=== PATIENT | male | born 1945 | race Caucasian/White ===

== ENCOUNTER → 2019-12-19 13:34 | Outpatient (BNVA) | payer MEDICARE, SELFPAY | PROVIDERS: PCP Internal Medicine Endocrinology, Diabetes & Metabolism; Visit Provider Internal Medicine Endocrinology, Diabetes & Metabolism | DX: I48.0 Paroxysmal atrial fibrillation (principal); Z51.81 Encounter for therapeutic drug level monitoring; Z79.01 Long term (current) use of anticoagulants | CPT/HCPCS: 93793 ==

== ENCOUNTER → 2019-12-26 15:04 | Outpatient (BNVA) | payer MEDICARE, SELFPAY | PROVIDERS: PCP Internal Medicine Endocrinology, Diabetes & Metabolism; Visit Provider Internal Medicine | DX: I48.0 Paroxysmal atrial fibrillation (principal); Z51.81 Encounter for therapeutic drug level monitoring; Z79.01 Long term (current) use of anticoagulants | CPT/HCPCS: Q3014 ==

== ENCOUNTER → 2020-01-02 15:59 | Outpatient (BNVA) | payer MEDICARE, SELFPAY | PROVIDERS: PCP Internal Medicine Endocrinology, Diabetes & Metabolism; Visit Provider Internal Medicine | DX: I48.0 Paroxysmal atrial fibrillation (principal); Z51.81 Encounter for therapeutic drug level monitoring; Z79.01 Long term (current) use of anticoagulants | CPT/HCPCS: 99211 ==

== ENCOUNTER → 2020-01-16 13:46 | Outpatient (BNVA) | payer MEDICARE, SELFPAY | PROVIDERS: PCP Internal Medicine Endocrinology, Diabetes & Metabolism; Visit Provider Internal Medicine | DX: Z76.89 Persons encountering health services in other specified circumstances (principal) ==

== ENCOUNTER → 2020-01-23 14:09 | Outpatient (BNVA) | payer MEDICARE, SELFPAY | PROVIDERS: PCP Internal Medicine Endocrinology, Diabetes & Metabolism; Visit Provider Internal Medicine | DX: Z76.89 Persons encountering health services in other specified circumstances (principal) ==

== ENCOUNTER → 2020-01-30 16:28 | Outpatient (BNVA) | payer MEDICARE, SELFPAY | PROVIDERS: PCP Internal Medicine Endocrinology, Diabetes & Metabolism; Visit Provider Internal Medicine | DX: I48.0 Paroxysmal atrial fibrillation (principal); Z51.81 Encounter for therapeutic drug level monitoring; Z79.01 Long term (current) use of anticoagulants | CPT/HCPCS: 99211 ==

== ENCOUNTER → 2020-02-06 13:43 | Outpatient (BNVA) | payer MEDICARE, SELFPAY | PROVIDERS: PCP Internal Medicine Endocrinology, Diabetes & Metabolism; Visit Provider Internal Medicine | DX: Z76.89 Persons encountering health services in other specified circumstances (principal) ==

== ENCOUNTER → 2020-02-13 14:45 | Outpatient (BNVA) | payer MEDICARE, SELFPAY | PROVIDERS: PCP Internal Medicine Endocrinology, Diabetes & Metabolism; Visit Provider Internal Medicine | DX: Z76.89 Persons encountering health services in other specified circumstances (principal) ==

== ENCOUNTER → 2020-02-20 15:40 | Outpatient (BNVA) | payer MEDICARE, SELFPAY | PROVIDERS: PCP Internal Medicine Cardiovascular Disease; Visit Provider Internal Medicine | DX: Z76.89 Persons encountering health services in other specified circumstances (principal) ==

== ENCOUNTER → 2020-02-27 16:24 | Outpatient (BNVA) | payer MEDICARE, SELFPAY | PROVIDERS: PCP Internal Medicine Cardiovascular Disease; Referring Provider Internal Medicine Cardiovascular Disease; Visit Provider Internal Medicine | DX: Z76.89 Persons encountering health services in other specified circumstances (principal) ==

== ENCOUNTER → 2020-03-05 14:53 | Outpatient (BNVA) | payer MEDICARE, SELFPAY | PROVIDERS: PCP Internal Medicine Endocrinology, Diabetes & Metabolism; Visit Provider Internal Medicine | DX: Z76.89 Persons encountering health services in other specified circumstances (principal) ==

== ENCOUNTER → 2020-03-12 14:35 | Outpatient (BNVA) | payer MEDICARE, SELFPAY | PROVIDERS: PCP Internal Medicine Endocrinology, Diabetes & Metabolism; Visit Provider Internal Medicine | DX: Z76.89 Persons encountering health services in other specified circumstances (principal) ==

== ENCOUNTER → 2020-03-19 15:12 | Outpatient (BNVA) | payer MEDICARE, SELFPAY | PROVIDERS: PCP Internal Medicine; Visit Provider Internal Medicine | DX: Z76.89 Persons encountering health services in other specified circumstances (principal) ==

== ENCOUNTER → 2020-03-26 14:22 | Outpatient (BNVA) | payer MEDICARE, SELFPAY | PROVIDERS: PCP Internal Medicine; Visit Provider Internal Medicine | DX: Z76.89 Persons encountering health services in other specified circumstances (principal) ==

== ENCOUNTER → 2020-04-02 13:56 | Outpatient (BNVA) | payer MEDICARE, SELFPAY | PROVIDERS: PCP Internal Medicine; Visit Provider Internal Medicine | DX: I48.0 Paroxysmal atrial fibrillation (principal); Z51.81 Encounter for therapeutic drug level monitoring; Z79.01 Long term (current) use of anticoagulants | CPT/HCPCS: 99211 ==

== ENCOUNTER → 2020-04-09 14:08 | Outpatient (BNVA) | payer MEDICARE, SELFPAY | PROVIDERS: PCP Internal Medicine Endocrinology, Diabetes & Metabolism; Visit Provider Internal Medicine ==

== ENCOUNTER → 2020-04-16 15:46 | Outpatient (BNVA) | payer MEDICARE, SELFPAY | PROVIDERS: PCP Internal Medicine Endocrinology, Diabetes & Metabolism; Visit Provider Internal Medicine ==

== ENCOUNTER → 2020-04-23 14:50 | Outpatient (BNVA) | payer MEDICARE, SELFPAY | PROVIDERS: PCP Internal Medicine Endocrinology, Diabetes & Metabolism; Visit Provider Internal Medicine ==

== ENCOUNTER → 2020-04-30 15:30 | Outpatient (BNVA) | payer MEDICARE, SELFPAY | PROVIDERS: PCP Internal Medicine Endocrinology, Diabetes & Metabolism; Visit Provider Internal Medicine | DX: I48.0 Paroxysmal atrial fibrillation (principal); Z51.81 Encounter for therapeutic drug level monitoring; Z79.01 Long term (current) use of anticoagulants | CPT/HCPCS: Q3014 ==

== ENCOUNTER → 2020-05-07 14:04 | Outpatient (BNVA) | payer MEDICARE, SELFPAY | PROVIDERS: PCP Internal Medicine Endocrinology, Diabetes & Metabolism; Visit Provider Internal Medicine ==

== ENCOUNTER → 2020-05-14 14:18 | Outpatient (BNVA) | payer MEDICARE, SELFPAY | PROVIDERS: PCP Internal Medicine Endocrinology, Diabetes & Metabolism; Visit Provider Internal Medicine ==

== ENCOUNTER → 2020-05-21 14:15 | Outpatient (BNVA) | payer MEDICARE, SELFPAY | PROVIDERS: PCP Internal Medicine Cardiovascular Disease; Visit Provider Internal Medicine ==

== ENCOUNTER → 2020-05-29 13:58 | Outpatient (BNVA) | payer MEDICARE, SELFPAY | PROVIDERS: PCP Internal Medicine Endocrinology, Diabetes & Metabolism; Visit Provider Internal Medicine ==

== ENCOUNTER → 2020-06-04 13:41 | Outpatient (BNVA) | payer MEDICARE, SELFPAY | PROVIDERS: PCP Internal Medicine Endocrinology, Diabetes & Metabolism; Visit Provider Internal Medicine ==

== ENCOUNTER → 2020-06-11 13:45 | Outpatient (BNVA) | payer MEDICARE, SELFPAY | PROVIDERS: PCP Internal Medicine Endocrinology, Diabetes & Metabolism; Visit Provider Internal Medicine ==

== ENCOUNTER → 2020-06-18 14:44 | Outpatient (BNVA) | payer MEDICARE, SELFPAY | PROVIDERS: PCP Internal Medicine Endocrinology, Diabetes & Metabolism; Visit Provider Internal Medicine ==

== ENCOUNTER → 2020-06-25 15:26 | Outpatient (BNVA) | payer MEDICARE, SELFPAY | PROVIDERS: PCP Internal Medicine Endocrinology, Diabetes & Metabolism; Visit Provider Internal Medicine ==

== ENCOUNTER → 2020-07-03 14:09 | Outpatient (BNVA) | payer MEDICARE, SELFPAY | PROVIDERS: PCP Internal Medicine Endocrinology, Diabetes & Metabolism; Visit Provider Internal Medicine ==

== ENCOUNTER → 2020-07-09 14:13 | Outpatient (BNVA) | payer MEDICARE, SELFPAY | PROVIDERS: PCP Internal Medicine Endocrinology, Diabetes & Metabolism; Visit Provider Internal Medicine ==

== ENCOUNTER → 2020-07-16 15:01 | Outpatient (BNVA) | payer MEDICARE, SELFPAY | PROVIDERS: PCP Internal Medicine Endocrinology, Diabetes & Metabolism; Visit Provider Internal Medicine ==

== ENCOUNTER → 2020-07-23 14:39 | Outpatient (BNVA) | payer MEDICARE, SELFPAY | PROVIDERS: PCP Internal Medicine Endocrinology, Diabetes & Metabolism; Visit Provider Internal Medicine ==

== ENCOUNTER → 2020-07-30 13:37 | Outpatient (BNVA) | payer MEDICARE, SELFPAY | PROVIDERS: PCP Internal Medicine Endocrinology, Diabetes & Metabolism; Visit Provider Internal Medicine ==

== ENCOUNTER → 2020-08-06 16:16 | Outpatient (BNVA) | payer MEDICARE, SELFPAY | PROVIDERS: PCP Internal Medicine Endocrinology, Diabetes & Metabolism; Visit Provider Internal Medicine ==

== ENCOUNTER → 2020-08-13 15:58 | Outpatient (BNVA) | payer MEDICARE, SELFPAY | PROVIDERS: PCP Internal Medicine Cardiovascular Disease; Visit Provider Internal Medicine | DX: Z13.89 Encounter for screening for other disorder (principal) | CPT/HCPCS: Q3014 ==

== ENCOUNTER → 2020-08-16 14:26 | Outpatient (BNVA) | payer MEDICARE, SELFPAY | PROVIDERS: PCP Internal Medicine Endocrinology, Diabetes & Metabolism; Visit Provider Internal Medicine | DX: I48.0 Paroxysmal atrial fibrillation (principal); Z51.81 Encounter for therapeutic drug level monitoring; Z79.01 Long term (current) use of anticoagulants | CPT/HCPCS: 85610; 99211 ==

== ENCOUNTER → 2020-08-20 08:28 | Outpatient (BNVA) | payer MEDICARE, SELFPAY | PROVIDERS: PCP Internal Medicine Endocrinology, Diabetes & Metabolism; Visit Provider Internal Medicine ==

== ENCOUNTER → 2020-08-27 13:24 | Outpatient (BNVA) | payer MEDICARE, SELFPAY | PROVIDERS: PCP Internal Medicine Endocrinology, Diabetes & Metabolism; Visit Provider Internal Medicine ==

== ENCOUNTER → 2020-09-03 09:51 | Outpatient (BNVA) | payer MEDICARE, SELFPAY | PROVIDERS: PCP Internal Medicine Endocrinology, Diabetes & Metabolism; Visit Provider Internal Medicine ==

== ENCOUNTER → 2020-09-10 09:03 | Outpatient (BNVA) | payer MEDICARE, SELFPAY | PROVIDERS: PCP Internal Medicine Endocrinology, Diabetes & Metabolism; Visit Provider Internal Medicine ==

== ENCOUNTER → 2020-09-17 10:24 | Outpatient (BNVA) | payer MEDICARE, SELFPAY | PROVIDERS: PCP Internal Medicine Endocrinology, Diabetes & Metabolism; Visit Provider Internal Medicine ==

== ENCOUNTER → 2020-09-24 08:31 | Outpatient (BNVA) | payer MEDICARE, SELFPAY | PROVIDERS: PCP Internal Medicine Endocrinology, Diabetes & Metabolism; Visit Provider Internal Medicine ==

== ENCOUNTER → 2020-09-30 14:41 | Outpatient (BNVA) | payer MEDICARE, SELFPAY | PROVIDERS: PCP Internal Medicine Endocrinology, Diabetes & Metabolism; Visit Provider Internal Medicine ==

== ENCOUNTER → 2020-10-08 13:34 | Outpatient (BNVA) | payer MEDICARE, SELFPAY | PROVIDERS: PCP Internal Medicine Endocrinology, Diabetes & Metabolism; Visit Provider Internal Medicine ==

== ENCOUNTER → 2020-10-15 09:22 | Outpatient (BNVA) | payer MEDICARE, SELFPAY | PROVIDERS: PCP Internal Medicine Endocrinology, Diabetes & Metabolism; Visit Provider Internal Medicine ==

== ENCOUNTER → 2020-10-21 15:17 | Outpatient (BNVA) | payer MEDICARE, SELFPAY | PROVIDERS: PCP Internal Medicine Endocrinology, Diabetes & Metabolism; Visit Provider Internal Medicine Cardiovascular Disease | DX: I48.0 Paroxysmal atrial fibrillation (principal); I10 Essential (primary) hypertension; Z95.818 Presence of other cardiac implants and grafts; Z98.890 Other specified postprocedural states | CPT/HCPCS: 93005; 99212 ==

== ENCOUNTER → 2020-10-22 09:13 | Outpatient (BNVA) | payer MEDICARE, SELFPAY | PROVIDERS: PCP Internal Medicine Endocrinology, Diabetes & Metabolism; Visit Provider Internal Medicine ==

== ENCOUNTER → 2020-10-29 09:40 | Outpatient (BNVA) | payer MEDICARE, SELFPAY | PROVIDERS: PCP Internal Medicine Endocrinology, Diabetes & Metabolism; Visit Provider Internal Medicine ==

== ENCOUNTER → 2020-11-05 11:29 | Outpatient (BNVA) | payer MEDICARE, SELFPAY | PROVIDERS: PCP Internal Medicine Endocrinology, Diabetes & Metabolism; Visit Provider Internal Medicine ==

== ENCOUNTER → 2020-11-12 09:13 | Outpatient (BNVA) | payer MEDICARE, SELFPAY | PROVIDERS: PCP Internal Medicine Endocrinology, Diabetes & Metabolism; Visit Provider Internal Medicine ==

== ENCOUNTER → 2020-11-19 15:15 | Outpatient (BNVA) | payer MEDICARE, SELFPAY | PROVIDERS: PCP Internal Medicine Endocrinology, Diabetes & Metabolism; Visit Provider Internal Medicine ==

== ENCOUNTER → 2020-11-26 08:30 | Outpatient (BNVA) | payer MEDICARE, SELFPAY | PROVIDERS: PCP Internal Medicine Endocrinology, Diabetes & Metabolism; Visit Provider Internal Medicine ==

== ENCOUNTER → 2020-12-02 15:51 | Outpatient (BNVA) | payer MEDICARE, SELFPAY | PROVIDERS: PCP Internal Medicine Endocrinology, Diabetes & Metabolism; Visit Provider Internal Medicine | DX: I48.0 Paroxysmal atrial fibrillation (principal) | CPT/HCPCS: Q3014 ==

== ENCOUNTER → 2020-12-03 11:23 | Outpatient (BNVA) | payer MEDICARE, SELFPAY | PROVIDERS: PCP Internal Medicine Endocrinology, Diabetes & Metabolism; Visit Provider Internal Medicine ==

== ENCOUNTER → 2020-12-10 11:48 | Outpatient (BNVA) | payer MEDICARE, SELFPAY | PROVIDERS: PCP Internal Medicine Cardiovascular Disease; Visit Provider Internal Medicine ==

== ENCOUNTER → 2020-12-17 09:11 | Outpatient (BNVA) | payer MEDICARE, SELFPAY | PROVIDERS: PCP Internal Medicine Cardiovascular Disease; Visit Provider Internal Medicine ==

== ENCOUNTER → 2020-12-24 10:11 | Outpatient (BNVA) | payer MEDICARE, SELFPAY | PROVIDERS: PCP Internal Medicine Cardiovascular Disease; Visit Provider Internal Medicine ==

== ENCOUNTER → 2020-12-31 10:34 | Outpatient (BNVA) | payer MEDICARE, SELFPAY | PROVIDERS: PCP Internal Medicine Cardiovascular Disease; Visit Provider Internal Medicine ==

== ENCOUNTER → 2021-01-07 08:45 | Outpatient (BNVA) | payer MEDICARE, SELFPAY | PROVIDERS: PCP Internal Medicine Cardiovascular Disease; Visit Provider Internal Medicine ==

== ENCOUNTER → 2021-01-14 10:34 | Outpatient (BNVA) | payer MEDICARE, SELFPAY | PROVIDERS: PCP Internal Medicine Endocrinology, Diabetes & Metabolism; Visit Provider Internal Medicine ==

== ENCOUNTER → 2021-01-22 12:06 | Outpatient (BNVA) | payer MEDICARE, SELFPAY | PROVIDERS: PCP Internal Medicine Endocrinology, Diabetes & Metabolism; Visit Provider Internal Medicine ==

== ENCOUNTER → 2021-01-28 11:52 | Outpatient (BNVA) | payer MEDICARE, SELFPAY | PROVIDERS: PCP Internal Medicine Endocrinology, Diabetes & Metabolism; Visit Provider Internal Medicine ==

== ENCOUNTER → 2021-02-04 10:41 | Outpatient (BNVA) | payer MEDICARE, SELFPAY | PROVIDERS: PCP Internal Medicine Endocrinology, Diabetes & Metabolism; Visit Provider Internal Medicine ==

== ENCOUNTER → 2021-02-11 09:49 | Outpatient (BNVA) | payer MEDICARE, SELFPAY | PROVIDERS: PCP Internal Medicine Endocrinology, Diabetes & Metabolism; Visit Provider Internal Medicine ==

== ENCOUNTER → 2021-02-18 12:14 | Outpatient (BNVA) | payer MEDICARE, SELFPAY | PROVIDERS: PCP Internal Medicine Endocrinology, Diabetes & Metabolism; Visit Provider Internal Medicine ==

== ENCOUNTER → 2021-02-25 09:48 | Outpatient (BNVA) | payer MEDICARE, SELFPAY | PROVIDERS: PCP Internal Medicine Endocrinology, Diabetes & Metabolism; Visit Provider Internal Medicine ==

== ENCOUNTER → 2021-03-03 15:51 | Outpatient (BNVA) | payer MEDICARE, SELFPAY | PROVIDERS: PCP Internal Medicine Cardiovascular Disease; Visit Provider Internal Medicine | DX: I48.0 Paroxysmal atrial fibrillation (principal); Z51.81 Encounter for therapeutic drug level monitoring; Z79.01 Long term (current) use of anticoagulants | CPT/HCPCS: Q3014 ==

== ENCOUNTER → 2021-03-11 14:58 | Outpatient (BNVA) | payer MEDICARE, SELFPAY | PROVIDERS: PCP Internal Medicine Cardiovascular Disease; Visit Provider Internal Medicine ==

== ENCOUNTER → 2021-07-16 14:37 | Outpatient (BNVA) | payer MEDICARE, SELFPAY | PROVIDERS: PCP Internal Medicine Endocrinology, Diabetes & Metabolism; Visit Provider Internal Medicine Cardiovascular Disease | DX: Z13.89 Encounter for screening for other disorder (principal) ==

== ENCOUNTER → 2021-11-13 14:49 | Outpatient (BNVA) | payer MEDICARE, SELFPAY | PROVIDERS: PCP Internal Medicine Endocrinology, Diabetes & Metabolism; Visit Provider Internal Medicine Cardiovascular Disease | DX: I48.0 Paroxysmal atrial fibrillation (principal); Z95.818 Presence of other cardiac implants and grafts; Z98.890 Other specified postprocedural states | CPT/HCPCS: 93005; 99212 ==

== ENCOUNTER → 2022-05-28 14:36 | Outpatient (BNVA) | payer MEDICARE, SELFPAY | PROVIDERS: PCP Internal Medicine Endocrinology, Diabetes & Metabolism; Visit Provider Internal Medicine Cardiovascular Disease | DX: I44.0 Atrioventricular block, first degree (principal); Z79.82 Long term (current) use of aspirin | CPT/HCPCS: 93005 ==

== ENCOUNTER 2022-11-19 14:41 | Outpatient (AMB) | payer MEDICARE, SELFPAY ==
--- NOTE | 2022-11-19 14:57 | MHC.OFFVIS ---
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 He has been doing well from cardiac perspective. Occasionally feels rapid heartbeat which is very short episode. No prolonged episodes or episodes suggestive atrial fibrillation. Still remains off oral anticoagulation therapy. Has been followed for MitraClip by [place] has told that he has trace to mild mitral regurgitation. No heart failure symptoms. Blood pressure remains well controlled. [facility] Medical History HTN (hypertension) Mitral regurgitation Paroxysmal A-fib Surgical History S/P mitral valve clip implantation Review of Systems Const Denies chills, Denies fatigue, Denies fever(s), Denies frequent falls, Denies weakness, Denies weight gain and Denies weight loss ENT Denies dizziness Card Denies chest pain, Denies leg edema, Denies lightheadedness, Denies palpitations, Denies dyspnea, Denies dyspnea on exertion, Denies orthopnea and Denies other (loss of consciousness) Resp Denies cough, Denies dyspnea and Denies dyspnea on exertion GI Denies hematochezia and Denies change in stool character Musc Denies abnormal gait, Denies muscle weakness, Denies numbness, Denies radiating pain into limb and Denies tingling Neuro Denies abnormal gait, Denies dizziness, Denies frequent falls, Denies numbness, Denies tingling and Denies weakness Endo Denies fatigue and Denies palpitations Physical Exam Vital Signs: Last Vital Signs Pulse 57 11/19/22 15:00 BP 124/78 11/19/22 15:00 BMI result Body Mass Index 26.1 Const General: cooperative, comfortable, no acute distress, alert and awake Nutritional Appearance: average body habitus Orientation/consciousness: patient oriented x3 Limitations: no limitations Neck Neck: Yes trachea midline, Yes supple and Yes no JVD Resp Effort & Inspection: normal respiratory effort Auscultation: clear to auscultation bilaterally Cardio Jugular venous distension: no JVD Palpation: normal PMI Rate: regular rate Rhythm: regular rhythm Heart sounds: S1 normal heart sound present, S2 normal heart sound present, no click, no gallops, no murmurs and no rubs GI Auscultation: normal bowel sounds Neuro General: patient oriented x3 and no focal motor deficits Extrem General: Yes no clubbing, cyanosis or edema Office Procedures EKG Details: EKG shows sinus bradycardia otherwise normal EKG [id number], Complete Assessment & Plan Assessment & Plan (1) Paroxysmal A-fib: Comment: Status post ablation. Developed atrial tachycardia which has remained suppressed on low-dose flecainide therapy Code(s): I48.0 - Paroxysmal atrial fibrillation Plan: Paroxysmal atrial fibrillation status post ablation. Had developed atrial tachycardia which has remained suppressed on once a day dose of flecainide and atenolol therapy. Has done well with rhythm control approach will continue pursue rhythm control approach. He is currently of oral anticoagulation therapy and risk associated with this was discussed. Advised to consider Watchman device. Continue risk factor modification with aggressive blood pressure control which is currently well optimized avoidance stimulants was discussed. Stress mitigation strategies were discussed. (2) S/P mitral valve clip implantation: Code(s): Z98.890 - Other specified postprocedural states; Z95.818 - Presence of other cardiac implants and grafts Plan: Status post MitraClip placement for mitral valve prolapse and severe mitral regurgitation. Has done well very well clinically. Continue low-dose aspirin therapy. SBE prophylaxis as per ACC/aha guidelines. Follow-up with [place] team for the same. Will follow up in the clinic 1 year's time, sooner p.r.n.. Thank you for allowing me to partake in his care Medications: Refilled atenolol 50 mg PO BID 90 days 180 tabs 1RF I48.0 - Paroxysmal atrial fibrillation flecainide 50 mg PO DAILY 90 days 90 tabs 1RF I48.0 - Paroxysmal atrial fibrillation Coding Level of Care Code Est Pt Level 4 (33461) Diagnoses Paroxysmal A-fib I48.0 S/P mitral valve clip implantation Z98.890; Z95.818 CPT Codes EKG - CPT: 49981-[id number], Complete ([id number])
[2022-11-19 15:00] VITALS: BP 124/78; PULSE 57; BMI 26.1
== END 2022-11-19 15:23 | disposition home or self-care (01) ==
PROVIDERS: PCP Internal Medicine Endocrinology, Diabetes & Metabolism; Referring Provider Internal Medicine Endocrinology, Diabetes & Metabolism; Visit Provider Internal Medicine Cardiovascular Disease
DX: I48.0 Paroxysmal atrial fibrillation (principal); Z98.890 Other specified postprocedural states; Z95.818 Presence of other cardiac implants and grafts
CPT/HCPCS: 93010; 99214

== ENCOUNTER → 2022-11-19 14:41 | Outpatient (BNVA) | payer MEDICARE, SELFPAY | PROVIDERS: PCP Internal Medicine Endocrinology, Diabetes & Metabolism; Referring Provider Internal Medicine Endocrinology, Diabetes & Metabolism; Visit Provider Internal Medicine Cardiovascular Disease | DX: I48.0 Paroxysmal atrial fibrillation (principal); Z98.890 Other specified postprocedural states; Z95.818 Presence of other cardiac implants and grafts | CPT/HCPCS: 93005; 99212 ==

== ENCOUNTER → 2023-05-17 14:49 | Outpatient (BNVA) | payer MEDICARE, SELFPAY | PROVIDERS: PCP Internal Medicine Endocrinology, Diabetes & Metabolism; Visit Provider Internal Medicine Cardiovascular Disease ==

== ENCOUNTER 2023-11-22 14:55 | Outpatient (AMB) | payer MEDICARE, SELFPAY ==
--- NOTE | 2023-11-22 14:56 | A.OFFVIS_ITS ---
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 He has not had any significant cardiac complaints. He maintains high level of activity. Denies any exertional chest pain or shortness of breath. No heart failure symptoms. Denies any prolonged palpitation irregular heartbeat. Currently on flecainide once a day as well as atenolol twice a day. Follows up with echocardiogram at [facility] for his MitraClip. I do not have a copy of his last echo report. Denies any heart failure symptoms. [facility] Medical History Current use of anticoagulant therapy Mitral regurgitation HTN (hypertension) Paroxysmal A-fib Surgical History S/P mitral valve clip implantation Review of Systems Const Denies chills, Denies fatigue, Denies fever(s), Denies frequent falls, Denies weakness, Denies weight gain and Denies weight loss ENT Denies dizziness Card Denies chest pain, Denies leg edema, Denies lightheadedness, Denies palpitations, Denies dyspnea, Denies dyspnea on exertion, Denies orthopnea and Denies other (loss of consciousness) Resp Denies cough, Denies dyspnea and Denies dyspnea on exertion GI Denies hematochezia and Denies change in stool character Musc Denies abnormal gait, Denies muscle weakness, Denies numbness, Denies radiating pain into limb and Denies tingling Neuro Denies abnormal gait, Denies dizziness, Denies frequent falls, Denies numbness, Denies tingling and Denies weakness Endo Denies fatigue and Denies palpitations Physical Exam Vital Signs: Last Vital Signs Pulse 58 11/22/23 14:57 BP 120/72 11/22/23 14:57 BMI result Body Mass Index 26.1 Const General: cooperative, comfortable, no acute distress, alert and awake Nutritional Appearance: average body habitus Orientation/consciousness: patient oriented x3 Limitations: no limitations Neck Neck: Yes trachea midline, Yes supple and Yes no JVD Resp Effort & Inspection: normal respiratory effort Auscultation: clear to auscultation bilaterally Cardio Jugular venous distension: no JVD Palpation: normal PMI Rate: regular rate Rhythm: regular rhythm Heart sounds: S1 normal heart sound present, S2 normal heart sound present, no click, no gallops, no murmurs and no rubs GI Auscultation: normal bowel sounds Neuro General: patient oriented x3 and no focal motor deficits Extrem General: Yes no clubbing, cyanosis or edema Office Procedures EKG Details: EKG shows sinus bradycardia 58 beats per minute [id number], Complete Assessment & Plan Assessment & Plan (1) Paroxysmal A-fib: Comment: Status post ablation. Developed atrial tachycardia which has remained suppressed on low-dose flecainide therapy Code(s): I48.0 - Paroxysmal atrial fibrillation Category: Medical Plan: Paroxysmal atrial fibrillation status post ablation 11 years ago. He has not had any recurrent episodes of atrial fibrillation. Although has structural changes and left atrium related to his mitral valve disease and as per his mentioning. Do not have last copy of echocardiogram. Discussed with him risk of thromboembolic complication despite not having atrial fibrillation last 11 years based on prior studies. He still declines to use oral anticoagulation therapy. Discussed with him the possibility of Watchman device. Have provided him with literature. He will think about it. He is currently on aspirin therap y is not adequate prophylaxis. Has done well with flecainide therapy which she takes once a day. Concomitant use of atenolol therapy was discussed. Continue aggressive blood pressure control which is well optimized. (2) S/P mitral valve clip implantation: Code(s): Z98.890 - Other specified postprocedural states; Z95.818 - Presence of other cardiac implants and grafts Category: Surgical Plan: Status post MitraClip procedure for severe mitral regurgitation related to primary mitral valve disease with mitral valve prolapse. Being followed by [facility] interventional Cardiology. Last echocardiogram was done at [facility]. Will review the echocardiogram once I get it. He said he had residual [id number] mitral regurgitation. Continue SBE prophylaxis as per ACC/aha guidelines. Currently on aspirin therapy which can be continued for mitral clip procedure. Will follow up in the clinic in 1 year's time, sooner p.r.n.. Thank you for allowing me to partake in his care Medications: Refilled atenolol 50 mg PO BID 180 tabs 3RF 90 days I48.0 - Paroxysmal atrial fibrillation flecainide 50 mg PO DAILY 90 tabs 3RF I48.0 - Paroxysmal atrial fibrillation Coding Level of Care Code Est Pt Level 4 (68064) Diagnoses Paroxysmal A-fib I48.0 S/P mitral valve clip implantation Z98.890; Z95.818 CPT Codes EKG - CPT: 76626-[id number], Complete ([id number])
[2023-11-22 14:57] VITALS: BP 120/72; PULSE 58; BMI 26.1
== END 2023-11-22 15:28 | disposition home or self-care (01) ==
PROVIDERS: PCP Internal Medicine Endocrinology, Diabetes & Metabolism; Visit Provider Internal Medicine Cardiovascular Disease
DX: I48.0 Paroxysmal atrial fibrillation (principal); Z98.890 Other specified postprocedural states; Z95.818 Presence of other cardiac implants and grafts
CPT/HCPCS: 93010; 99214

== ENCOUNTER → 2023-11-22 14:55 | Outpatient (BNVA) | payer MEDICARE, SELFPAY | PROVIDERS: PCP Internal Medicine Endocrinology, Diabetes & Metabolism; Visit Provider Internal Medicine Cardiovascular Disease | DX: I48.0 Paroxysmal atrial fibrillation (principal); Z95.818 Presence of other cardiac implants and grafts; Z98.890 Other specified postprocedural states | CPT/HCPCS: 93005; 99212 ==

== ENCOUNTER 2024-02-14 10:13 | Outpatient (AMB) | payer MEDICARE, SELFPAY ==
[2024-02-14 10:23] VITALS: BP 110/70; PULSE 59
--- NOTE | 2024-02-14 10:23 | A.OFFVIS_ITS ---
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 Accompanied by: Spouse Allergies No Known Allergies [No Known Allergies*] Allergy (Verified 05/28/22 14:43) Medication List - Last Reconciled 02/14/24 by Ta Blankenship MD apixaban (Eliquis) 5 mg PO BID aspirin (Adult Aspirin Regimen) 81 mg PO DAILY atenolol Take 1 tablet by mouth twice daily atorvastatin 10 mg PO DAILY cholecalciferol (vitamin D3) 25 mcg PO DAILY famotidine 10 mg PO DAILY flecainide Take 1 tablet by mouth once daily levocetirizine 5 mg PO DAILY magnesium amino acid chelate mg PO vitamins-lipotropics 200-100 mg (Lipo-Flavonoid Plus) tabs PO zinc sulfate 25 mg PO DAILY HPI Comments Details: Luther comes for follow-up, accompanied by his . Recently had a acute cerebrovascular accident which led to fall and fracture of his right leg in multiple places requiring surgery. He subsequently however completely recovered from his neurologic abnormality quickly. He was then started on Eliquis therapy which she has been taking, unfortunately is also been taking aspirin therapy. He has not had luckily any major bleeding issues including epistaxis which has bothered him in the past. He said last week he had prolonged episode of fast heart rate at 120 beats per minute that lasted for about 5 hours. Prior to that he had episode of irregular heartbeat but below 100 beats per minute. Over the last few months he has been having increasing burden of irregular heartbeat. Had a event monitor done through [facility] but do not have a copy of the reports. He also had an echocardiogram in May I do not have a copy of those results as well. He has not had any other cardiac symptoms. No heart failure symptoms. No lightheadedness, syncope. [facility] Medical History Current use of anticoagulant therapy Mitral regurgitation HTN (hypertension) Paroxysmal A-fib Surgical History S/P mitral valve clip implantation Review of Systems Const Denies chills, Denies fatigue, Denies fever(s), Denies frequent falls, Denies weakness, Denies weight gain and Denies weight loss ENT Denies dizziness Card Denies chest pain, Denies leg edema, Denies lightheadedness, Denies palpitations, Denies dyspnea, Denies dyspnea on exertion, Denies orthopnea and Denies other (loss of consciousness) Resp Denies cough, Denies dyspnea and Denies dyspnea on exertion GI Denies hematochezia and Denies change in stool character Musc Denies abnormal gait, Denies muscle weakness, Denies numbness, Denies radiating pain into limb and Denies tingling Neuro Denies abnormal gait, Denies dizziness, Denies frequent falls, Denies numbness, Denies tingling and Denies weakness Endo Denies fatigue and Denies palpitations Physical Exam Vital Signs: Last Vital Signs Pulse 59 02/14/24 10:23 BP 110/70 02/14/24 10:23 Const General: cooperative, comfortable, no acute distress, alert and awake Nutritional Appearance: average body habitus Orientation/consciousness: patient oriented x3 Limitations: no limitations Neck Neck: Yes trachea midline, Yes supple and Yes no JVD Resp Effort & Inspection: normal respiratory effort Auscultation: clear to auscultation bilaterally Cardio Jugular venous distension: no JVD Palpation: normal PMI Rate: regular rate Rhythm: regular rhythm Heart sounds: S1 normal heart sound present, S2 normal heart sound present, no click, no gallops, no murmurs and no rubs GI Auscultation: normal bowel sounds Neuro General: patient oriented x3 and no focal motor deficits Extrem General: Yes no clubbing, cyanosis or edema Office Procedures EKG Details: EKG shows sinus bradycardia at 59 beats per minute [id number], Complete Assessment & Plan Assessment & Plan (1) Paroxysmal A-fib: Comment: Status post ablation. Developed atrial tachycardia which has remained suppressed on low-dose flecainide therapy Code(s): I48.0 - Paroxysmal atrial fibrillation Category: Medical Plan: Paroxysmal atrial fibrillation status post ablation many years ago in [place] followed by recently increasing symptoms of palpitation irregular heartbeat suggestive of both atrial tachycardia as well as atrial fibrillation. He had a prolonged monitor done through an another institution, do not have a copy of the results. However given his increasing symptom burden I have advised him to increase his flecainide to 50 mg b.i.d. and continue atenolol therapy. We can maximize medical therapy given that he most likely has structural atrial fibrillation prior to considering repeat ablation. Unfortunately had a recent CVA and I strongly recommended him to be on oral anticoagulation therapy. He has not had any bleeding complication and as per the guidelines and FDA recommendations not currently a candidate for Watchman device. I would strongly recommended him to come off aspirin therapy to reduce bleeding risk. He wants to discuss with his valve team in [place]. Continue aggressive blood pressure control. Will obtain results from other institution in near future. (2) S/P mitral valve clip implantation: Code(s): Z98.890 - Other specified postprocedural states; Z95.818 - Presence of other cardiac implants and grafts Category: Surgical Plan: Status post MitraClip for severe mitral regurgitation. Currently doing well from that perspective. Currently on full oral anticoagulation Eliquis and therefore does not need additional aspirin therapy. This was discussed with him. Continue aggressive blood pressure control. Continue SBE prophylaxis as per ACC/aha guidelines. Will follow up in the clinic in 6 months time, sooner p.r.n.. Thank you for allowing me to partake in his care Coding Level of Care Code Est Pt Level 4 (26055) Complex EM visit Add On G2211 Diagnoses Paroxysmal A-fib I48.0 S/P mitral valve clip implantation Z98.890; Z95.818 CPT Codes EKG - CPT: 68523-[id number], Complete ([id number])
== END 2024-02-14 11:01 | disposition home or self-care (01) ==
PROVIDERS: PCP Internal Medicine Endocrinology, Diabetes & Metabolism; Visit Provider Internal Medicine Cardiovascular Disease
DX: I48.0 Paroxysmal atrial fibrillation (principal); Z98.890 Other specified postprocedural states; Z95.818 Presence of other cardiac implants and grafts
CPT/HCPCS: 93010; 99214; G2211

== ENCOUNTER → 2024-02-14 10:13 | Outpatient (BNVA) | payer MEDICARE, SELFPAY | PROVIDERS: PCP Internal Medicine Endocrinology, Diabetes & Metabolism; Visit Provider Internal Medicine Cardiovascular Disease | DX: I48.0 Paroxysmal atrial fibrillation (principal); R00.0 Tachycardia, unspecified; I10 Essential (primary) hypertension; Z98.890 Other specified postprocedural states; Z95.818 Presence of other cardiac implants and grafts; Z79.01 Long term (current) use of anticoagulants | CPT/HCPCS: 93005; 99212 ==

== ENCOUNTER 2024-08-17 12:45 | Outpatient (AMB) | payer MEDICARE, SELFPAY ==
--- NOTE | 2024-08-17 12:46 | MHC.OFFVIS ---
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 He was scheduled for ablation last year however he says after stopping his supplements that he was taking for other reasons, his arrhythmias dissipated. He has then been off flecainide and has had no recurrent palpitations. He has not had any no new neurologic symptoms. Has been tolerating Eliquis therapy well without any bleeding issues including epistaxis. Has a follow-up set with [place] in fall. [facility] History Current use of anticoagulant therapy Mitral regurgitation HTN (hypertension) Paroxysmal A-fib Surgical History S/P mitral valve clip implantation Review of Systems Const Denies chills, Denies fatigue, Denies fever(s), Denies frequent falls, Denies weakness, Denies weight gain and Denies weight loss ENT Denies dizziness Card Denies chest pain, Denies leg edema, Denies lightheadedness, Denies palpitations, Denies dyspnea, Denies dyspnea on exertion, Denies orthopnea and Denies other (loss of consciousness) Resp Denies cough, Denies dyspnea and Denies dyspnea on exertion GI Denies hematochezia and Denies change in stool character Musc Denies abnormal gait, Denies muscle weakness, Denies numbness, Denies radiating pain into limb and Denies tingling Neuro Denies abnormal gait, Denies dizziness, Denies frequent falls, Denies numbness, Denies tingling and Denies weakness Endo Denies fatigue and Denies palpitations Physical Exam Vital Signs: Last Vital Signs Pulse 54 08/17/24 12:47 BP 110/70 08/17/24 12:47 BMI result Body Mass Index 26.1 Const General: cooperative, comfortable, no acute distress, alert and awake Nutritional Appearance: average body habitus Orientation/consciousness: patient oriented x3 Limitations: no limitations Neck Neck: Yes trachea midline, Yes supple and Yes no JVD Resp Effort & Inspection: normal respiratory effort Auscultation: clear to auscultation bilaterally Cardio Jugular venous distension: no JVD Palpation: normal PMI Rate: regular rate Rhythm: regular rhythm Heart sounds: S1 normal heart sound present, S2 normal heart sound present, no click, no gallops, no murmurs and no rubs GI Auscultation: normal bowel sounds Neuro General: patient oriented x3 and no focal motor deficits Extrem General: Yes no clubbing, cyanosis or edema Office Procedures EKG Details: EKG shows sinus bradycardia at 55 beats per minute with normal EKG [id number], Complete Assessment & Plan Assessment & Plan (1) Paroxysmal A-fib: Comment: Status post ablation. Developed atrial tachycardia which has remained suppressed on low-dose flecainide therapy Code(s): I48.0 - Paroxysmal atrial fibrillation Category: Medical Plan: Paroxysmal atrial fibrillation in the past he has post ablation and last year had significant episodes of palpitations and has had atrial tachycardia in the past. Since stopping his ablation and currently off all antiarrhythmic drug therapy has done well with no recurrent symptoms. At this point time I would say avoid stimulants. Avoid the supplements in the past. Continue atenolol therapy. Continue full oral anticoagulation has remains at high risk for recurrent thromboembolic complication with apixaban 5 mg b.i.d.. Not sure if there has role for dual therapy with aspirin as this will only increase his bleeding risk. (2) S/P mitral valve clip implantation: Code(s): Z98.890 - Other specified postprocedural states; Z95.818 - Presence of other cardiac implants and grafts Category: Medical Plan: Status post MitraClip for severe mitral regurgitation secondary mitral valve prolapse. Clinically doing well with no significant regurgitation. Continue Eliquis as above. SBE prophylaxis as per ACC/aha guidelines. He continues to follow up with his valve team in [place]. I asked him to forward records especially echocardiogram reports if done in [place] so that we can keep it in the chart. (3) HTN (hypertension): Code(s): I10 - Essential (primary) hypertension Category: Medical Plan: Hypertension which is currently well optimized advised to monitor blood pressure at home maintain a log. Goal blood pressure less than 130/84. Low-salt was advised stress mitigation strategies were discussed. Will follow up in the clinic in 9 months, sooner p.r.n.. Thank you for allowing me to partake in his care Coding Level of Care Code Est Pt Level 4 (53875) Complex EM visit Add On G2211 Diagnoses Paroxysmal A-fib I48.0 S/P mitral valve clip implantation Z98.890; Z95.818 HTN (hypertension) I10 CPT Codes EKG - CPT: 03921-[id number], Complete ([id number])
[2024-08-17 12:47] VITALS: BP 110/70; PULSE 54; BMI 26.1
--- OUTSIDE RECORDS SUMMARY | 2024-08-17 14:50 | XMS_ITS | Clinical Summary ---
Author Organization [facility] Address [address] [place] [address] Care Team Providers Care Etcher Photoengraving Name Role Phone Rob Mcgraw MD Primary Care Provider [phone] Allergies No known active allergies Medications Medication Sig Dispensed Refills Start Date End Date Status atenolol (TENORMIN) tablet 50 mg Take 50 mg by mouth 2 (two) times a day. 0 Active flecainide (TAMBOCOR) 50 MG tablet Take 50 mg by mouth daily. 0 Active warfarin (COUMADIN) 5 MG tablet Take 5 mg by mouth daily. 0 Active warfarin (COUMADIN) 7.5 MG tabletIndications:once a week Take 7.5 mg by mouth. 0 Active atorvastatin (LIPITOR) tablet 10 mg Take 10 mg by mouth every evening. 0 Active tamsulosin (FLOMAX) 0.4 MG CAPS Take 0.4 mg by mouth daily. 0 Active aspirin 81 MG tablet Take 81 mg by mouth daily. 0 Active loratadine (CLARITIN) 10 MG tablet Take 10 mg by mouth as needed for allergies. 0 Active Multiple Vitamins-Minerals (MULTIVITAMIN ADULT PO) Take by mouth. 0 Active raNITIdine (ZANTAC) 150 MG tablet Take 150 mg by mouth 3 (three) times a day as needed for heartburn. 0 Active Vitamins-Lipotropics (LIPO-FLAVONOID PLUS PO) Take by mouth. 0 Active melatonin 3 MG TABS tablet Take 3 mg by mouth every night at bedtime. 0 Active Active Problems No known active problems Social History Tobacco Use Types Packs/Day Years Used Date Smoking Tobacco: Never Smokeless Tobacco: Never Alcohol Use Standard Drinks/Week Comments No 0 (1 standard drink = 0.6 oz pur e alcohol) Sex and Gender Information Value Date Recorded Sex Assigned at Not on file Gender Identity Not on file Sexual Orientation Not on file Job Start Date Occupation Industry Not on file Not on file Not on file Last Filed Vital Signs Vital Sign Reading Time Taken Comments Blood Pressure 158/84 06/24/2018 2:25 PM EDT Pulse 65 05/30/2018 2:16 PM EDT Temperature 36.2 ??C (97.2 ??F) 05/30/2018 2:16 PM ED T Respiratory Rate - - Oxygen Saturation - - Inhaled Oxygen Concentration - - Weight 83.9 kg (185 lb) 06/24/2018 2:25 PM EDT Height 177.8 cm (5' 10 ) 05/30/2018 2:16 PM EDT Body Mass Index 26.54 05/30/2018 2:16 PM EDT Plan of Treatment Health Maintenance Due Date Last Done Comments Hepatitis C Screening 1945 COVID-19 Vaccine (#1) 03/05/1946 Depression Screening 1958 Preventative Health Evaluation 1964 DTap / Tdap / Td (1 - Tdap) 1965 Shingrix-Zoster Vaccine (1 of 2) 1996 Fall Risk Assessment 09/04/2011 Pneumococcal Vaccine (1 of 1 - PCV) 09/04/2011 RSV Adult > 60+ Yrs or Pregn ant (1 - 1-dose 75+ series) 2021 Influenza Vaccine (Season Ended) 2024 Hepatitis B Vaccines Aged Out No long er eligible based on patient's age to complete this topic RSV Ped < 20 months Aged Out No longe r eligible based on patient's age to complete this topic Care Teams Etcher Photoengraving Relationship Specialty Start Date End Date Rob Mcgraw MD [address] [place] [address] Dr [address] [place] [address] PCP - General Mechanical Shop Laborer 05/30/18
== END 2024-08-17 13:13 | disposition home or self-care (01) ==
LOC: HO.HCS 12:46
PROVIDERS: PCP Internal Medicine Endocrinology, Diabetes & Metabolism; Visit Provider Internal Medicine Cardiovascular Disease
DX: I48.0 Paroxysmal atrial fibrillation (principal); Z98.890 Other specified postprocedural states; Z95.818 Presence of other cardiac implants and grafts; I10 Essential (primary) hypertension
CPT/HCPCS: 93010; 99214; G2211

== ENCOUNTER → 2024-08-17 12:45 | Outpatient (BNVA) | payer MEDICARE, SELFPAY | PROVIDERS: PCP Internal Medicine Endocrinology, Diabetes & Metabolism; Visit Provider Internal Medicine Cardiovascular Disease | DX: I48.0 Paroxysmal atrial fibrillation (principal); I10 Essential (primary) hypertension; Z79.01 Long term (current) use of anticoagulants; Z98.890 Other specified postprocedural states; Z95.818 Presence of other cardiac implants and grafts | CPT/HCPCS: 93005; 99212 ==

== ENCOUNTER 2024-08-25 14:26 | Outpatient (AMB) | payer MEDICARE, SELFPAY ==
--- NOTE | 2024-08-25 14:28 | AM.OFFVISNUR ---
Intake Visit Reasons: ekg Allergies No Known Allergies [No Known Allergies*] Allergy (Verified 05/28/22 14:43) Nursing Note pt is here for nurse visit with ekg pt complains of irregular heart beat ekg reviewed by Dr Blankenship pt is directed to take flecianide 100mg PO BID Office Procedures EKG [id number], Complete Coding CPT Codes EKG - CPT: 39754-[id number], Complete ([id number])
--- OUTSIDE RECORDS SUMMARY | 2024-08-25 14:29 | XMS_ITS | Clinical Summary ---
Author Organization [facility] Address [address] [place] [address] Care Team Providers Care Hardening Machine Operator Helper Name Role Phone Rob Mcgraw MD Primary Care Provider [phone] Allergies No known active allergies Medications Medication [...] age to complete this topic Care Teams Hardening Machine Operator Helper Relationship Specialty Start Date End Date Rob Mcgraw MD [address] [place] [address] Dr [address] [place] [address] PCP - General Heart Surgeon 05/30/18
== END 2024-08-25 15:02 | disposition home or self-care (01) ==
LOC: HO.HCS 14:27
PROVIDERS: PCP Internal Medicine Endocrinology, Diabetes & Metabolism
DX: I48.92 Unspecified atrial flutter (principal); I44.2 Atrioventricular block, complete
CPT/HCPCS: 93010

== ENCOUNTER → 2024-08-25 14:26 | Outpatient (BNVA) | payer MEDICARE, SELFPAY | PROVIDERS: PCP Internal Medicine Endocrinology, Diabetes & Metabolism | DX: I49.8 Other specified cardiac arrhythmias (principal) | CPT/HCPCS: 93005 ==

== ENCOUNTER → 2024-08-30 14:25 | Outpatient (BNVA) | payer MEDICARE, SELFPAY | PROVIDERS: PCP Internal Medicine Endocrinology, Diabetes & Metabolism; Visit Provider Internal Medicine Cardiovascular Disease | DX: Z13.89 Encounter for screening for other disorder (principal) ==

== ENCOUNTER → 2024-11-17 13:27 | Outpatient (REF) | payer MEDICARE, SELFPAY ==
--- OUTSIDE RECORDS SUMMARY | 2024-01-13 07:32 | XMS_ITS | Encounter Summary ---
Author Organization [facility] [address] Address [address] [place] [address] Care Team Providers Care Swing Type Lathe Operator Name Role Phone Rob Mcgraw MD Primary Care Provider Encounter Details Date Type Department Care Team (Late st Contact Info) Description 01/13/2024 7:32 AM EDT Hospital Encounter [facility]ISTORIC ENCOUNTERS [facility] CONVERSION ONLY Terence Bashir MD [address] [place] [id number] Social History Tobacco Use Types Packs/Day Years Used Date Smoking Tobacco: Never Smokeless Tobacco: Never Alcohol Use Standard Drinks/Week Comments No 0 (1 standard drink = 0.6 oz pur e alcohol) Sex and Gender Information Value Date Recorded Sex Assigned at Not on file Legal Sex Male 7:39 PM EST Gender Identity Not on file Sexual Orientation Not on file documented as of this encounter Plan of Treatment Not on file documented as of this encounter Visit Diagnoses Not on filedocumented in this encounter Care Teams Swing Type Lathe Operator Relationship Specialty Start Date End Date Rob Mcgraw MD [address] [place] [address] [place] [id number] 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
--- NOTE | 2024-11-17 13:30 | HM_ITS ---
Conclusion: 1. Patient was monitored for total period of 3 days 2. Baseline was normal sinus rhythm with average heart of 55 beats per minute 3. No significant pauses noted but frequent sinus bradycardia noted with 85.6% of the time heart rate below 60 beats per minute 4. Frequent PACs noted without any sustained arrhythmias with total burden of 5.7% 5. No patient reported events MTDD
--- OUTSIDE RECORDS SUMMARY | 2024-11-17 13:39 | XMS_ITS | Continuity of Care Document ---
Author Organization [facility] Address [address] [facility] [address] [place] [address] Phone [phone] Care Team Providers Care Brownfield Redevelopment Specialist Name Role Phone Rob Mcgraw M.D. Care Team Information Re ceiver [phone] Problems Active Problems Provider Date Essential hypertension Rob Mcgraw M.D. O nset: 10/29/2021 Osteoarthritis Rob Mcgraw M.D. Onset: 0 10/29/2021 Hyperlipidemia Rob Mcgraw M.D. Onset: 0 10/29/2021 Atrial fibrillation Rob Mcgraw M.D. Onse t: 10/29/2021 Anxiety disorder Rob Mcgraw M.D. Onset: 06/10/2022 Social History Type Date Description Comments Sex Male Sex Unknown Lives With Spouse Work Status Retired Tobacco Use Start: Unknown Never Smoked Cigarettes ETOH Use Denies alcohol use Allergies and adverse reactions Description No Known Drug Allergies Medications Active Medications SIG Qnty Indications Order ing Provider Date [id number] Tablets 1 by mouth twice a day 180tabs Rob Mcgraw M.D. 05/08/2024 Sertraline PIE99fw Tablets Take 1 & 1/2 (One & One-Half) Tablets By Mouth AT Bedtime 135tabs Rob Mcgraw M.D. 06/18/2022 Klonopin0.5mg Tablets 1 tab by mouth twice per day 60tabs Rob Mcgraw M.D. 04/24/2022 Fumvng4he TBPK as directed 1units Rob Mcgraw M.D. 01/27/2022 Aspirin Adult Low Xytx24gb Tablets DR 1 by mouth every day Rob Mcgraw M.D. 10/29/2021 Pepcid ac10mg Tablets 1 tab by mouth every day Rob Mcgraw M.D. 10/29/2021 Vitamin D (Cholecalciferol)25mc g (1000 Ut) Tablets 1 by mouth every day Rob Mcgraw M.D. 10/29/2021 Magnesium Tykmrarxwxbo673fa Tablets Rob Mcgraw M.D. 10/29/2021 Ansghwtjiuv748ew Capsules Take 4 Capsule By Mouth 8caps Rob Mcgraw M.D. 10/28/2021 Atorvastatin Mqimkdy28bj Tablets Take 1 Tablet By Mouth With Supper 90tabs Rob Mcgraw M.D. Vzshehzu63ay Tablets 1 tab by mouth twice a day 90tabs Ta Blankenship MD Flecainide Bikodyc69gw Tablets Take 1 Tablet By Mouth daily Ta Blankenship MD Vital Signs Date Vital Result Comment 12/24/2023 1:08pm BP Systolic 130 mmHg BP Diastolic 80 mmHg Heart Rate 68 /min Height 70 inches 5'10 Weight 190.25 lb BMI (Body Mass Index) 27.3 kg/m2 Results Test Acquired Date Facility Test Result H/L Range Note Lipid Panel 12/28/2022 [facility] Cholesterol, Total 183 mg/dL (<200) Triglyceride 191 mg/dL High (<150) HDL Chol 46 mg/dL (>39) LDL Cholesterol, Calculated 99 mg/dL (0-130) Non HDL Cholesterol (Calc) 137 mg/dL (<160) Urinalysis Complete 12/28/2022 [facility] Appear/Color LIGHT YELLOW 1 SP. [place] 1.017 (1.002-1 .030) Urine PH 5.5 (5.0-8.0 ) Urine Albumin NEGATIVE (Neg) Urine Glucose NEGATIVE (Neg) Urine Ketones NEGATIVE (Neg) Urine Bilirubin NEGATIVE (Neg) Urine Hemoglobin NEGATIVE (Neg) Urine Nitrite NEGATIVE (Neg) Urine Leukocyte NEGATIVE (Neg) Urobilinogen NORMAL mg/dL (Norm) Urine WBCs 1 /HPF (0-5) Urine RBCs 2 /HPF (0-3) Mucus SLIGHT /LPF Complete Abc With Diff 12/28/2022 [facility] WBC 10.1 K/MM3 (4.0-11. 0) RBC 5.85 M/MM3 (4.70-6. 10) HGB 17.8 GM/DL High (13.7-17 .1) HCT 53.5 % High (40.5-50 .0) MCV 91.5 FL (80.0-94 .0) MCH 30.4 pg (27.0-34 .0) MCHC 33.3 g/dL (33.0-37 .0) PLT 200 K/MM3 (150-460 ) RDW-SD 45.0 FL (<47.0) MPV 10.5 FL (9.4-12. 4) Automated NRBC 0.0 #/100WBC'S Abs. NRBC 0.0 K/MM3 Neut # 6.1 K/MM3 (1.3-7.0 ) Lymph # 2.5 K/MM3 (0.8-3.1 ) Wharton# 0.9 K/MM3 (0.4-1.3 ) Eo # 0.4 K/MM3 (0.0-0.4 ) Baso # 0.1 K/MM3 (0.0-0.1 ) Abs. Imm Gran 0.1 K/MM3 Neut 60.5 % (44-76) Lymph 25.2 % (15-43) Monocyte 8.7 % (4.5-10. 5) Eo 4.2 % (0-6) Baso 0.8 % (0-2) Imm Gran 0.6 % Free And Total PSA 12/28/2022 [facility] Total PSA 2.8 NG/ML (0-4) 2 Free PSA 0.6 NG/ML Percent Free PSA THE PERCENTAGE O <SEE NOTE> % (25-100) 3 TSH With Reflex To FT4 12/28/2022 [facility] TSH With Reflex To FT4 2.84 uIU/mL (0.4-4.2 ) Comprehensive Metabolic Panl 12/28/2022 [facility] Glucose 99 mg/dL (70-99) BUN 16 mg/dL (8-23) Creatinine 1.0 mg/dL (0.7-1.2 ) Sodium 139 mmol/L (133-145 ) Potassium 4.9 mmol/L (3.6-5.2 ) Chloride 102 mmol/L (98-107) Bicarbonate 26 mmol/L (22-29) Anion Gap 11 (4-17) Albumin 4.6 GM/DL (3.4-4.8 ) Calcium 9.7 mg/dL (8.6-10. 5) Bilirubin,Total 0.7 mg/dL (0-1.2 ) Total Protein 7.2 GM/DL (6.2-8.2 ) Ag Ratio 1.8 Ast 19 U/L (0-40) Alk Phos 130 U/L High (40-129) Alt 15 U/L (0-41) Estimated GFR Creatinine 77 ML/MIN/1.73M2 4 Urinalysis Complete 02/13/2022 [facility] Appear/Color LIGHT YELLOW 5 SP. [place] 1.009 (1.002-1 .030) Urine PH 6.0 (5.0-8.0 ) Urine Albumin NEGATIVE (Neg) Urine Glucose NEGATIVE (Neg) Urine Ketones NEGATIVE (Neg) Urine Bilirubin NEGATIVE (Neg) Urine Hemoglobin NEGATIVE (Neg) Urine Nitrite NEGATIVE (Neg) Urine Leukocyte NEGATIVE (Neg) Urobilinogen NORMAL mg/dL (Norm) Urine WBCs <1 /HPF (0-5) Urine RBCs <1 /HPF (0-3) Culture Urine 02/13/2022 [facility] Specimen Description CLEAN CATCH (URI <SEE NOTE> 6 Special Requests NONE Culture NO GROWTH Report Status FINAL 02/14/2022 7 Culture Urine 02/12/2022 [facility] Culture Urine <pending> Lipid Panel 10/30/2021 [facility] Cholesterol, Total 154 mg/dL (<200) Triglyceride 144 mg/dL (<150) HDL Chol 41 mg/dL (>39) LDL Cholesterol, Calculated 84 mg/dL (0-130) Non HDL Cholesterol (Calc) 113 mg/dL (<160) Ua Complete 10/30/2021 [facility] Appear/Color LIGHT YELLOW 8 SP. [place] 1.012 (1.002-1 .030) Urine PH 6.5 (5.0-8.0 ) Urine Albumin NEGATIVE (Neg) Urine Glucose NEGATIVE (Neg) Urine Ketones NEGATIVE (Neg) Urine Bilirubin NEGATIVE (Neg) Urine Hemoglobin NEGATIVE (Neg) Urine Nitrite NEGATIVE (Neg) Urine Leukocyte NEGATIVE (Neg) Urobilinogen NORMAL mg/dL (Norm) Urine WBCs <1 /HPF (0-5) Urine RBCs <1 /HPF (0-3) CBC W/Auto Differential 10/30/2021 [facility] WBC 9.8 K/MM3 (4.0-11. 0) RBC 5.71 M/MM3 (4.70-6. 10) HGB 17.4 GM/DL High (13.7-17 .1) HCT 50.5 % High (40.5-50 .0) MCV 88.4 FL (80.0-94 .0) MCH 30.5 pg (27.0-34 .0) MCHC 34.5 g/dL (33.0-37 .0) PLT 172 K/MM3 (150-460 ) RDW-SD 42.8 FL (<47.0) MPV 10.5 FL (9.4-12. 4) Automated NRBC 0.0 #/100WBC'S Abs. NRBC 0.0 K/MM3 Neut # 5.7 K/MM3 (1.3-7.0 ) Lymph # 2.6 K/MM3 (0.8-3.1 ) Wharton# 1.0 K/MM3 (0.4-1.3 ) Eo # 0.3 K/MM3 (0.0-0.4 ) Baso # 0.1 K/MM3 (0.0-0.1 ) Abs. Imm Gran 0.1 K/MM3 Neut 58.6 % (44-76) Lymph 26.7 % (15-43) Monocyte 10.2 % (4.5-10. 5) Eo 3.3 % (0-6) Baso 0.7 % (0-2) Imm Gran 0.5 % PSA Free & Total 10/30/2021 [facility] Total PSA 3.1 NG/ML (0-4) 9 Free PSA 0.7 NG/ML Percent Free PSA THE PERCENTAGE O <SEE NOTE> % (25-100) 10 Comprehensive Metabolic Panl 10/30/2021 [facility] Glucose 96 mg/dL (70-99) BUN 15 mg/dL (8-23) Creatinine 1.0 mg/dL (0.7-1.2 ) Sodium 138 mmol/L (133-145 ) Potassium 4.4 mmol/L (3.6-5.2 ) Chloride 104 mmol/L (98-107) Bicarbonate 20 mmol/L Low (22-29) Anion Gap 14 (4-17) Albumin 4.6 GM/DL (3.4-4.8 ) Calcium 9.3 mg/dL (8.6-10. 5) Bilirubin,Total 1.2 mg/dL (0-1.2 ) Total Protein 7.1 GM/DL (6.2-8.2 ) Ag Ratio 1.8 Ast 23 U/L (0-40) Alk Phos 126 U/L (40-129) Alt 14 U/L (0-41) Estimated GFR Creatinine 75 ML/MIN/1.73M2 11 Thyroid Panel 10/30/2021 [facility] Free T4 1.23 ng/dL (0.70-1. 80) TSH 3.47 uIU/mL (0.4-4.2 ) 1 CLEAR 2 TEST PERFORMED USING THE GEOFFREY ELECTROCHEMILLUMINESCENCE TOTAL PSA ASSAY. PSA VALUES OBTAINED WITH OTHER ASSAY METHODS OR KITS CANNOT BE USED INTERCHANGEABLY. 3 THE PERCENTAGE OF FR EE PSA IS INTENDED TO BE USED TO ENHANCE THE DIFFERENTIATION OF PROSTATE CANCER FROM BENIGN PROSTATE DISEASE IN SUBJECTS WHOSE TOTAL PSA VALUES ARE BETWEEN 4.0 AND 10.0 NG/ML. FOR SUBJECTS WHOSE TOTAL PSA LEVELS FALL BELOW 4.0 OR ABOVE 10.0 NG/ML, THE PROBABILITY OF PROSTATE CANCER IS DETERMINED ON THE BASIS OF THE TOTAL PSA ALONE. THEREFORE, THE PERCENT FREE PSA VALUES WILL NOT BE CALCULATED OR REPORTED WHEN THE TOTAL PSA IS LESS THAN 4.0 OR ABOVE 10.0 NG/ML. TESTING PERFORMED USING THE GEOFFREY ELECTROCHEMILLUMINESCENCE TOTAL AND FREE PSA ASSAYS. VALUES OBTAINED WITH OTHER ASSAY METHODS OR KITS CANNOT BE USED INTERCHANGEABLY. 4 Creatinine based est imated glomerular filtration (eGFR) in adults is calculated using the National Kid[employer] recommended 2020 CKD-EPI equation. Estimates GFR from serum creatinine, age and sex. 5 CLEAR 6 CLEAN CATCH (URINE) 7 FINAL 02/14/2022 8 CLEAR 9 TEST PERFORMED USING THE GEOFFREY ELECTROCHEMILLUMINESCENCE TOTAL PSA ASSAY. PSA VALUES OBTAINED WITH OTHER ASSAY METHODS OR KITS CANNOT BE USED INTERCHANGEABLY. 10 THE PERCENTAGE OF FR EE PSA IS INTENDED TO BE USED TO ENHANCE THE DIFFERENTIATION OF PROSTATE CANCER FROM BENIGN PROSTATE DISEASE IN SUBJECTS WHOSE TOTAL PSA VALUES ARE BETWEEN 4.0 AND 10.0 NG/ML. FOR SUBJECTS WHOSE TOTAL PSA LEVELS FALL BELOW 4.0 OR ABOVE 10.0 NG/ML, THE PROBABILITY OF PROSTATE CANCER IS DETERMINED ON THE BASIS OF THE TOTAL PSA ALONE. THEREFORE, THE PERCENT FREE PSA VALUES WILL NOT BE CALCULATED OR REPORTED WHEN THE TOTAL PSA IS LESS THAN 4.0 OR ABOVE 10.0 NG/ML. TESTING PERFORMED USING THE GEOFFREY ELECTROCHEMILLUMINESCENCE TOTAL AND FREE PSA ASSAYS. VALUES OBTAINED WITH OTHER ASSAY METHODS OR KITS CANNOT BE USED INTERCHANGEABLY. 11 Creatinine based est imated glomerular filtration (eGFR) in adults is calculated using the National Kid[employer] recommended 2020 CKD-EPI equation. Estimates GFR from serum creatinine, age and sex. Medical Devices Description No Information Available Encounters Type Date Location Provider Dx Diagnosis Office Visit 09/19/2024 9:49a Main Office Rob Mcgraw M.D. I10 Essential (primary) hypertension E78.5 Hyperlipidemia, unsp ecified Assessments Date Code Description Provider 09/19/2024 I10 Essential (primary) hyperten figueroa Rob Mcgraw M.D. 09/19/2024 E78.5 Hyperlipidemia, unspecified Rob Mcgraw M.D. Plan of Treatment Future Appointment(s):* 12/26/2024 3:15 pm - Rob Mcgraw M.D. at Main Office 12/24/2023 - Rob Mcgraw M.D.* I48.0 Paroxysmal atrial fibrillation * N40.1 Benign prostatic hyperplasia with lower urinary tract symptoms Functional Status Description No Information Available Mental Status Description No Information Available Referrals Description No Information Available
--- OUTSIDE RECORDS SUMMARY | 2024-11-17 13:39 | XMS_ITS | Clinical Summary ---
Author Organization [facility] Address [address] [place] [address] Care Team Providers Care Nuclear Officer Name Role Phone Rob Mcgraw MD Primary Care Provider [phone] Allergies No known active allergies Medications Medication [...] 65 05/30/2018 2:16 PM EDT Temperature 36.2 C (97.2 F) 05/30/2018 2:16 PM EDT Respiratory Rate - - Oxygen Saturation - [...] - 1-dose 75+ series) 2021 Influenza Vaccine (#1) 2024 Hepatitis B Vaccines Aged Out No long er eligible based on patient's age to complete this topic RSV Ped < 20 months Aged Out No longe r eligible based on patient's age to complete this topic Care Teams Nuclear Officer Relationship Specialty Start Date End Date Rob Mcgraw MD [address] [place] [address] Dr [address] [place] [address] PCP - General Ergonomics Engineer 05/30/18
--- OUTSIDE RECORDS SUMMARY | 2024-11-17 13:39 | XMS_ITS | Clinical Summary ---
Author Organization [address] [place] [address] Address [address] [place] [address] Phone Care Team Providers Care Director Surface Transportation Name Role Phone Rob Mcgraw MD Primary Care Provider [phone] Surgical History Surgery Date Site/Laterality Comments MITRAL VALVE SURGERY PROCEDURE:MITRAL VALVE SURGERY Medical History Medical History Date Comments Atrial fibrillation (CMS/HCC V24, CMS/HCC V28) DX:Atrial fibrillation (HCC) Tinnitus DX:Tinnitus Social History Tobacco Use Types Packs/Day Years Used Date Smoking Tobacco: Never Smokeless Tobacco: Never Alcohol Use Standard Drinks/Week Comments No 0 (1 standard drink = 0.6 oz pur e alcohol) Sex and Gender Information Value Date Recorded Sex Assigned at Not on file Legal Sex Male 7:39 PM EST Gender Identity Not on file Sexual Orientation Not on file Obstetrics History Plan of Treatment Health Maintenance Due Date Last Done Comments DTaP,Tdap,and Td Vaccines (1 - Tdap) 1965 Zoster Vaccines (1 of 2) 1996 RSV Immunization Adult Patients (1 - 1-dose 75+ series) 2021 Pneumococcal Vaccine: 50+ Years (2 of 2 - PCV) 09/04/2021 09/04/2020 Cholesterol Screening (Lipid Panel) 02/14/2022 Falls Risk Assessment 02/14/2022 Hepatitis C Screening 02/14/2022 Medicare Annual Wellness Visit 02/14/2022 Social Influencers of Health Screening 02/14/2022 Depression Screening 03/15/2024 COVID-19 Vaccine ( season) 2024 02/08/2024, 04/20/2023, 09/08/2022, Additional history exists Influenza Vaccine (#1) 2024 12/14/2023 Hypertension/CHF/CAD Annual BMP Blood Test 01/25/2025 01/26/2024, 04/23/2017 HIB Vaccines Aged Out No longer eligi ble based on patient's age to complete this topic HPV Vaccines Aged Out No longer eligi ble based on patient's age to complete this topic Hepatitis A Vaccines Aged Out No long er eligible based on patient's age to complete this topic Hepatitis B Vaccines Aged Out No long er eligible based on patient's age to complete this topic IPV Vaccines Aged Out No longer eligi ble based on patient's age to complete this topic MMR Vaccines Aged Out No longer eligi ble based on patient's age to complete this topic Meningococcal ACWY Vaccine Aged Out N o longer eligible based on patient's age to complete this topic Meningococcal B Vaccine Aged Out No l onger eligible based on patient's age to complete this topic RSV Immunization Patients Under 20 months Aged Out No longer eligible based on patient's age to complete this topic Varicella Vaccines Aged Out No longer eligible based on patient's age to complete this topic Insurance MEDICARE [facility] Care Teams Director Surface Transportation Relationship Specialty Start Date End Date Rob Mcgraw MD [address] [place] [address] Dr [address] [place] [phone] PCP - General Baker Bench 05/30/18
== END ==
LOC: HO.CARD 13:27
PROVIDERS: PCP Internal Medicine Endocrinology, Diabetes & Metabolism; Visit Provider Nurse Practitioner Family
DX: I48.0 Paroxysmal atrial fibrillation (principal)
CPT/HCPCS: 93242

== ENCOUNTER → 2024-11-17 13:30 | Outpatient (BNV) | payer MEDICARE, SELFPAY | PROVIDERS: PCP Internal Medicine Endocrinology, Diabetes & Metabolism; Visit Provider Internal Medicine Cardiovascular Disease | DX: I49.1 Atrial premature depolarization (principal) | CPT/HCPCS: 93244 ==